=== PATIENT | male | born 1995 | race Caucasian/White ===

== ENCOUNTER 2020-09-25 21:59 | Emergency (ER) | payer OTHER, SELFPAY ==
--- NOTE | ~2020-09-25 | XR_ITS ---
EXAMINATION: XR ankle LT min 3V DATE: 09/25/2020 22:30 INDICATION: Left ankle pain TECHNIQUE: Anteroposterior, lateral, mortise, and additional oblique view of the ankle were obtained. COMPARISON: None. FINDINGS: There is no fracture, dislocation, or subluxation. The bones, soft tissues, and joint space s are normal. IMPRESSION: 1. No acute osseous abnormality. Reviewed, dictated and finalized at location A. ROAD TRACK REPAIR SUPERVISOR
[2020-09-25 22:09] VITALS: BP 163/110; PULSE 82; RESP 16; TEMP 36.3; O2SAT 100
--- NOTE | 2020-09-25 23:49 | ED.GENADULT ---
HPI - General Adult General Chief complaint: Extremity Injury, Lower Stated complaint: left ankle injury Time Seen by Provider: 09/25/20 22:01 Source: patient Mode of arrival: ambulatory Limitations: no limitations History of Present Illness HPI narrative: Patient is a 24-year-old female who presents to emergency department for evaluation of left ankle injury that occurred earlier today patient was walking when he rolled the ankle has since had aching pain with swelling and tenderness of the ankle joint patient denies other injuries or complaints presents in no distress denies similar occurrence in the past Related Data Allergies Allergy/AdvReac Type Severity Reaction Status Date / Time Cat Dander Allergy Unknown Anaphylactic Uncoded 09/25/20 23:05 Shock Review of Systems Review of Systems: All systems reviewed & are unremarkable except as noted in HPI and below PMFSH Family History Family History Mother No problems noted. Father No problems noted. Grandparent No problems noted. Grandparent No problems noted. Social History Social History Years smoked: 6 Smoking status: Current every day smoker Tobacco type: cigarettes (a few a day) Second hand tobacco smoke exposure: No Alcohol intake: current Substance use type: marijuana Gender identity (if verbalized by the patient): Male Exam Narrative: Exam Narrative: GENERAL: Well-appearing, well-nourished, and in no acute distress. HEAD: Normocephalic, atraumatic. EYES: PERRLA and EOMI. ENT: Nares clear, no rhinorrhea or epistaxis. Mucous membranes moist. EXTREMITIES: Swelling and tenderness of the left ankle joint SKIN: Warm, dry, no rash. NEURO: No focal deficits. Alert and oriented x3. Neurovascularly intact PSYCH: Normal mood and affect. Course Course Emergency Course: Patient evaluated in the emergency department for ankle injury negative radiographs will be discharged home Vital Signs Vital signs: Vital Signs Temperature 97.3 F L 09/25/20 22:09 Pulse Rate 82 09/25/20 22:09 Respiratory Rate 16 09/25/20 22:09 Blood Pressure 163/110 H 09/25/20 22:09 Pulse Oximetry 100 09/25/20 22:09 Temperature 97.3 F L 09/25/20 22:09 Pulse Rate 82 09/25/20 22:09 Respiratory Rate 16 09/25/20 22:09 Blood Pressure 163/110 H 09/25/20 22:09 Pulse Oximetry 100 09/25/20 22:09 Medical Decision Making MDM Narrative Medical decision making narrative: Patients injury or pain is consistent with musculoskeletal etiology. No signs of neurological or vascular compromise on exam. Compartments and tisues are soft without signs of compartment syndrome. Pain is felt appropriate for further evaluation on an outpatient basis. Vital Signs Vital Signs: Vital Signs Temperature 97.3 F L 09/25/20 22:09 Pulse Rate 82 09/25/20 22:09 Respiratory Rate 16 09/25/20 22:09 Blood Pressure 163/110 H 09/25/20 22:09 Pulse Oximetry 100 09/25/20 22:09 Temperature 97.3 F L 09/25/20 22:09 Pulse Rate 82 09/25/20 22:09 Respiratory Rate 16 09/25/20 22:09 Blood Pressure 163/110 H 09/25/20 22:09 Pulse Oximetry 100 09/25/20 22:09 Imaging Data Radiologist's impression: ITS Impressions Ankle X-Ray 09/25/20 22:33 IMPRESSION: 1. No acute osseous abnormality. Discharge Plan Discharge Clinical Impression: Ankle sprain and strain Patient Disposition: Home, Self-Care Condition: Stable Instructions: Antibiotic Form, Ankle Sprain (DC) Additional Instructions: Wear Alec wrap with limited weight on the affected leg until able to bear weight without pain. Ice and elevate extremity. Pain medication as needed and directed. Follow up with your doctor for further care in the next 7 days. Return if symptoms worsen or concern Prescriptions: New ibuprofen [IBU] 600 mg t
[2020-09-26 00:01] VITALS: BP 127/89; PULSE 86; RESP 16; O2SAT 100
== END 2020-09-26 00:03 | disposition home or self-care (01) ==
PROVIDERS: Emergency Provider Emergency Medicine
DX: S93.402A Sprain of unspecified ligament of left ankle, initial encounter (principal); S96.912A Strain of unspecified muscle and tendon at ankle and foot level, left foot, initial encounter; F17.210 Nicotine dependence, cigarettes, uncomplicated; X50.9XXA Other and unspecified overexertion or strenuous movements or postures, initial encounter
CPT/HCPCS: 73610; 99283

== ENCOUNTER → 2021-02-06 14:56 | Outpatient (REF) | payer OTHER, SELFPAY | LOC: ANHLAB 14:56 | PROVIDERS: Visit Provider Nurse Practitioner | DX: L72.0 Epidermal cyst (principal) | CPT/HCPCS: 88304 ==

== ENCOUNTER 2024-05-07 08:02 | Outpatient (CLI) | payer OTHER, SELFPAY ==
[2024-05-07 16:30] LABS: Basophils Absolute Auto 0.1 K/mm3 (0.0-0.1); Basophils Percent Auto 0.7 % (0.2-1.2); Eosinophils Absolute Auto 0.1 K/mm3 (0-0.3); Eosinophils Percent Auto 1.5 % (0-4.4); Hematocrit 45.8 % (42.0-52.0); Hemoglobin 13.9 g/dL (14.0-18.0); Immature Granulocyte Absolute 0.07 K/mm3 (0.00-0.031); Lymphocytes Absolute Auto 2.77 K/mm3 (0.9-3.2); Lymphocytes Percent Auto 40.3 % (18.3-44.2); Mean Corpuscular HGB Conc 30.3 g/dl (32-36); Mean Corpuscular Hemoglobin 21.8 pg (26-34); Mean Corpuscular Volume 71.9 fl (80-100); Monocytes Absolute Auto 0.4 K/mm3 (0.1-0.6); Monocytes Percent Auto 6.4 % (2.6-8.5); Neutrophils Absolute Auto 3.5 K/mm3 (1.3-6.7); Neutrophils Percent Auto 50.1 % (45.5-73.1); Platelet Count Result 270 k/mm3 (150-375); Red Blood Count 6.37 M/mm3 (4.6-6.20); Red Cell Distribution Width 16.5 % (11.5-14.5); White Blood Count 6.9 K/mm3 (4.5-10.0)
[2024-05-07 16:55] LABS: Iron 119 ug/dL (49-181)
[2024-05-07 17:05] LABS: Alanine Aminotransferase 60 U/L (6-50); Albumin Level 4.8 g/dL (3.5-5.1); Alkaline Phosphatase 57 U/L (38-126); Anion Gap 13 mmol/L (4-12); Aspartate Amino Transferase 61 U/L (17-59); Bilirubin,Total 0.7 mg/dL (0.2-1.3); Blood Urea Nitrogen 19 mg/dL (9-20); Calcium 9.4 mg/dL (8.4-10.2); Carbon Dioxide 23 mmol/L (22-30); Chloride 101 mmol/L (98-107); Cholesterol 174 mg/dL (0-200); Estimated Glomerular Filt Rate > 60; Glucose 68 mg/dL (65-110); HDL Direct 44 mg/dL; Potassium 4.2 mmol/L (3.4-5.0); Sodium 137 mmol/L (137-145); Triglycerides 97 mg/dL (<150)
[2024-05-07 17:09] LABS: Percent Iron Saturation 35 % (20-50)
[2024-05-07 17:16] LABS: HIV 1/2 Ab P24 Ag Result Negative (Negative)
[2024-05-07 17:17] LABS: Anisocytosis 1+; Microcytosis 1+ (NORMAL); Platelet Estimate Adequate (Adequate)
[2024-05-07 17:18] LABS: Schistocytes None Seen
[2024-05-07 17:24] LABS: LDL Cholesterol Direct 88 mg/dL
[2024-05-07 17:30] LABS: Hepatitis C Virus Antibody Negative (Negative)
[2024-05-07 17:55] LABS: Rapid Plasma Reagin Non-Reactive (NonReactive)
[2024-05-14 15:44] LABS: Testosterone Free 102.7 pg/mL (35.0-155.0); Testosterone Total 631 ng/dL (250-1100)
== END 2024-05-07 08:03 | disposition home or self-care (01) ==
LOC: ANHGOSHLAB 08:04
PROVIDERS: PCP Family Medicine; Visit Provider Family Medicine
DX: D50.9 Iron deficiency anemia, unspecified (principal); R53.83 Other fatigue; Z13.228 Encounter for screening for other metabolic disorders; Z13.220 Encounter for screening for lipoid disorders; Z75.1 Person awaiting admission to adequate facility elsewhere
CPT/HCPCS: 36415; 80053; 80061; 82728; 83540; 83550; 84402; 84403; 85025; 86592; 86703; 86803; G0432

== ENCOUNTER 2025-03-11 15:56 | Emergency (ER) | payer OTHER, SELFPAY ==
--- NOTE | ~2025-03-11 | CT_ITS ---
EXAMINATION: CT brain wo con DATE: 03/11/2025 16:53 INDICATION: Paranoid delusions TECHNIQUE: Computed tomography (CT) of the head was performed without intravenous contrast. The dose- length product was 756.67 mGy-cm. COMPARISON: None FINDINGS: No acute intracranial hemorrhage. No mass effect. No midline shift. No hydrocephalus. Mild cerebral atrophy. Visualized paranasal sinuses and mastoid air cells are clear. IMPRESSION: 1. No acute intracranial hemorrhage. No mass effect. Reviewed, dictated and finalized at location A.
[2025-03-11 15:57] VITALS: BP 151/87; PULSE 73; RESP 18; TEMP 36.8; O2SAT 100
--- OUTSIDE RECORDS SUMMARY | 2025-03-11 15:58 | XMS_ITS | Continuity of Care Document ---
Author Organization [facility] Address [address] [place] [address] Phone Care Team Providers Care Aircraft Mechanic Electrical And Radio Name Role Phone Unavailable Unavailable Unavailable Procedures Procedure Date WREB Exam Advance Directives Directive Yes / No Effective Date File Name No Information Encounters Encounter Description Practice Location Reason(s) For Visit Diagnoses Date Provider Providers Copied on Encounter [facility] , [address], [place], [place], [id number], [place] tel:[phone] [facility] Encounter for dental exam and cleaning w abnormal findings No Information Family History Family Member Type Diagnosis Age At Onset No Information Payers Payer name Insurance type Covered green party ID Authoriza tion(s) No Information Social History Type Description Quantity Date Captured Comments Sex Male Smoking Status No Information Chief Complaint And Reason For Visit No Information Reason For Referral Reason For Referral No Information History Of Present Illness Encounter Date Complaint History Of Prese nt Illness No Information Functional Status Date Functional Assessmen t No Information Instructions Date Instruction Additional Infor mation No Information Assessments Type Assessment Date No Information Patient Care Teams Name Effective Dates (start - stop) Status Members No Information
--- OUTSIDE RECORDS SUMMARY | 2025-03-11 15:58 | XMS_ITS | Patient Health Record ---
Author Organization [facility] As [facility] Address [address] [facility] [address] [place] [address] Care Team Providers Care Diversified Crops Farmer Name Role Phone Sarah Sanchez Unavailable [phone] Reason For Referral No Information Plan Of Treatment No Information
--- OUTSIDE RECORDS SUMMARY | 2025-03-11 17:05 | XMS_ITS | Continuity of Care Document ---
Author Organization [facility] Address [address] [place] [address] Phone Care Team Providers Care Civil Preparedness Training Officer Name Role Phone Unavailable Unavailable Unavailable Procedures Procedure Date WREB Exam Advance Directives Directive Yes / No Effective Date File Name No Information Encounters Encounter Description Practice Location Reason(s) For Visit Diagnoses Date Provider Providers Copied on Encounter [facility] , [address], [place], [place], [id number], [place] tel:[phone] [facility] Encounter for dental exam and cleaning w abnormal findings No Information Family History Family Member Type Diagnosis Age At Onset No Information Payers Payer name Insurance type Covered alliance party ID Authoriza tion(s) No Information Social [...]
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
[2025-03-11 17:19] LABS: Hematocrit 41.9 % (42.0-52.0); Hemoglobin 13.4 g/dL (14.0-18.0); Immature Granulocyte Percent A 0.4 % (0-0.5); Immature Platelet Fraction Pct 8.8 % (0.9-11.2); Lymphocytes Absolute Auto 2.41 K/mm3 (0.9-3.2); Mean Corpuscular HGB Conc 32.0 g/dl (32-36); Mean Corpuscular Hemoglobin 21.9 pg (26-34); Mean Corpuscular Volume 68.6 fl (80-100); Nucleated Red Blood Cells Absolute Auto 0.000 K/mm3 (0.0-0.012); Nucleated Red Blood Cells Perc 0.0 % (0.0-0.2); Platelet Count Result 185 k/mm3 (150-375); Red Blood Count 6.11 M/mm3 (4.6-6.20); White Blood Count 7.6 K/mm3 (4.5-10.0)
[2025-03-11 17:30] LABS: Acetaminophen < 10 ug/mL (10-30); Alanine Aminotransferase 29 U/L (6-50); Albumin Level 5.1 g/dL (3.5-5.1); Alkaline Phosphatase 59 U/L (38-126); Anion Gap 15 mmol/L (4-12); Aspartate Amino Transferase 34 U/L (17-59); Bilirubin,Total 0.9 mg/dL (0.2-1.3); Blood Urea Nitrogen 13 mg/dL (9-20); Calcium 9.8 mg/dL (8.4-10.2); Carbon Dioxide 18 mmol/L (22-30); Chloride 107 mmol/L (98-107); Estimated CRCL calculation 113 ml/min; Estimated Glomerular Filt Rate > 60; Glucose 72 mg/dL (65-110); Potassium 4.2 mmol/L (3.4-5.0); Sodium 140 mmol/L (137-145); Total Protein 8.2 g/dL (6.3-8.2)
--- NOTE | 2025-03-11 17:36 | PC.NURSE ---
LAB WAS CONTACTED TO ADD THE URINE DRUG SCREEN TO URINE SAMPLE ALREADY TAKEN DOWN TO LAB AND RAN. STILL WAITING FOR LAB TO RUN URINE DRUG SCREEN AT THIS TIME
[2025-03-11 17:39] LABS: Band Neutrophils Percent 0 % (0-6)
[2025-03-11 17:40] LABS: Anisocytosis 1+; Hypochromasia 1+; Microcytosis 1+ (NORMAL); Schistocytes None Seen
[2025-03-11 18:00] LABS: Thyroid Stimulating Hormone 4.560 uIU/mL (0.465-4.680)
--- NOTE | 2025-03-11 18:35 | PC.NURSE ---
PATIENT HAVING SOME RESERVATIONS ON TDAP VACCINE, STATING HE DOESN'T FEEL THOUGH HE REALLY WANTS TO GET VACCINE. PATIENT WAS PROVIDED WITH VACCINE INFORMATION PAGE TO READ AND THINK OVER
[2025-03-11 18:57] LABS: Add Urine Microscopic? NO; Appearance Urine Clear (Clear); Glucose Urine UA Negative (Negative); Leukocyte Esterase Ur Negative LEU/UL (Negative); Nitrate Urine Negative (Negative); Specific Grav Ur 1.012 (1.001-1.035)
[2025-03-11 19:59] LABS: Cannabinoid Screen Urine Positive (Negative)
[2025-03-11 20:02] LABS: Trichomonas Vag PCR NOT DETECTED (NOT DETECTE)
== END 2025-03-11 19:35 | disposition home or self-care (01) ==
LOC: ANHED 17:03
PROVIDERS: Emergency Provider Physician Assistant; PCP Internal Medicine
DX: S61.210A Laceration without foreign body of right index finger without damage to nail, initial encounter (principal); S61.216A Laceration without foreign body of right little finger without damage to nail, initial encounter; F22 Delusional disorders; F17.210 Nicotine dependence, cigarettes, uncomplicated; W26.8XXA Contact with other sharp object(s), not elsewhere classified, initial encounter
CPT/HCPCS: 12001; 36415; 70450; 80053; 80143; 80307; 81003; 82077; 84443; 85025; 85055; 87491; 87591; 87661; 90471; 99282; 99284

== ENCOUNTER 2025-05-11 19:41 | Emergency (ER) | payer OTHER, SELFPAY ==
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
[2025-05-11 20:10] VITALS: BP 179/89; PULSE 67; RESP 18; TEMP 36.4; O2SAT 100
--- OUTSIDE RECORDS SUMMARY | 2025-05-11 23:36 | XMS_ITS | Patient Health Record ---
Author Organization [facility] As [facility] Address [address] [facility] [address] [place] [address] Care Team Providers Care Casino Worker Name Role Phone Sarah Sanchez Unavailable [phone] Reason For Referral No Information Plan Of Treatment No Information
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
[2025-05-12 00:52] VITALS: BP 138/68; PULSE 86; RESP 18; O2SAT 100
== END 2025-05-12 00:53 | disposition home or self-care (01) ==
PROVIDERS: Emergency Provider Physician Assistant
DX: S62.357A Nondisplaced fracture of shaft of fifth metacarpal bone, left hand, initial encounter for closed fracture (principal); F17.210 Nicotine dependence, cigarettes, uncomplicated; W22.8XXA Striking against or struck by other objects, initial encounter
CPT/HCPCS: 29125; 73130; 99284